=== PATIENT | male | born 1985 | race Caucasian/White ===

== ENCOUNTER 2017-07-14 00:02 | Inpatient (IN) | payer MEDICARE, MEDICAID ==
[2017-07-14] MEDS ORDERED: Piperacillin/Tazobactam 3.375 GM in Sodium Chloride 0.9% 100 ML IVPB SCH ×2 (02:00→08:00)
--- NOTE | 2017-07-14 06:34 | ULT ---
GALLBLADDER ULTRASOUND: CLINICAL HISTORY: Abdominal pain. Fever. FINDINGS: The liver is partially obscured by shadowing artifact, which limits assessment. The imaged portions demonstrate increased echogenicity, which may reflect fatty infiltration. There is distention of the gallbladder with evidence of cholelithiasis situated at the gallbladder neck. The common duct is di lated at 6 mm. No ascites is seen. Kumar sign is reported as negative by the developmental behavioral physician. IMPRESSION: 1. Cholelithiasis. 2. Mild biliary ductal dilatation is present. 3. Hepatic steatosis. 4. Limited evaluation due to decreased acoustic penetration of the abdomen. POS: [facility]
[2017-07-14] MEDS ORDERED: Ondansetron HCl/PF 4 MG/2 ML Vial IVP PRN ×3 (06:49→11:43)
[2017-07-14] MEDS ORDERED: Promethazine HCl 25 MG/ML VIAL IM PRN ×3 (06:49→11:43)
[2017-07-14] MEDS ORDERED: Bupivacaine 0.25% HCL 30 ML VIAL ONE (08:53)
[2017-07-14] MEDS ORDERED: Lidocaine 1% w/Epinephrine 1:200K 30 ML VIAL ONE (08:53)
[2017-07-14] MEDS ORDERED: Pantoprazole 40 MG VIAL IVP SCH (09:00)
[2017-07-14] MEDS ORDERED: Fentanyl 100 MCG/2 ML VIAL ONE ×2 (09:38→11:26)
--- NOTE | 2017-07-14 10:13 | HP ---
DATE OF ADMISSION: 07/14/2017 CHIEF COMPLAINT: Right upper quadrant pain. HISTORY OF PRESENT ILLNESS: This is a 32-year-old male, who presents with acute cholecystitis, pain in his right upper quadrant that is described as sharp, radiates to subscapular region. He has had s imilar symptoms after heavy meals in the past. The pain is now intractable, associated with nausea a nd vomiting. No change in bowels. See emergency department where ultrasound shows evidence of liana cystitis with gallstones, but he has a normal common bile duct. He has normal LFTs. PAST MEDICAL HISTORY: Hypertension and glaucoma. PAST SURGICAL HISTORY: He denies. MEDICATIONS: Medicines taken daily include Travatan, hydrochlorothiazide, lisinopril. ALLERGIES: SULFA. SOCIAL HISTORY: No smoking, alcohol, or other drugs. REVIEW OF SYSTEMS: Ten-system review of systems otherwise negative unless described above. PHYSICAL EXAMINATION: VITAL SIGNS: Blood pressure is 147/74, pulse 87, respirations 16. He is afebrile. HEENT: Sclerae are anicteric. Oropharynx clear. NECK: No lymphadenopathy. CHEST: Clear. HEART: Regular rate and rhythm. ABDOMEN: Soft, tender right lower quadrant, localized guarding, no rebound. No abdominal hernias. EXTREMITIES: No ischemia or edema to extremities. LABORATORY AND X-RAY FINDINGS: Ultrasound, gallstones. Liver function tests normal. ASSESSMENT: Acute cholecystitis. PLAN: Laparoscopic cholecystectomy. Risks, benefits, and alternatives discussed. He gave consent. We will do this today.
[2017-07-14] MEDS ORDERED: SUGAMMADEX SODIUM 500 MG/5 ML VIAL ONE (10:56)
[2017-07-14] MEDS ORDERED: Morphine Sulfate 2 MG/ML SYRINGE SLOW IVP PRN (11:31)
[2017-07-14] MEDS ORDERED: Meperidine HCl/PF 25 MG/ML VIAL SLOW IVP PRN (11:31)
[2017-07-14] MEDS ORDERED: Promethazine HCl 25 MG/ML VIAL SLOW IVP PRN (11:31)
[2017-07-14] MEDS ORDERED: HYDROmorphone 2 MG/ML VIAL SLOW IVP PRN (11:31)
[2017-07-14] MEDS ORDERED: HYDROcodone/Acetaminophen 10/325 mg Tablet PO PRN ×2 (11:43)
[2017-07-14] MEDS ORDERED: hydrALAZINE 20 MG/ML VIAL SLOW IVP PRN (11:43)
[2017-07-14] MEDS ORDERED: Mag-Al 1200 mg/1200 mg/30 ML UDCUP PO PRN (11:43)
[2017-07-14] MEDS ORDERED: Dextrose 5% in Water 1,000 ML IV PRN (11:43)
[2017-07-14] MEDS ORDERED: Calcium Carbonate 500 MG ChewTAB PO PRN (11:43)
[2017-07-14] MEDS ORDERED: Dextrose 50% Abboject 50 ML SYRINGE SLOW IVP PRN (11:43)
--- NOTE | 2017-07-14 12:04 | OP ---
DATE OF PROCEDURE: 07/14/2017 PREOPERATIVE DIAGNOSIS: Acute cholecystitis. POSTOPERATIVE DIAGNOSIS: Acute cholecystitis. PROCEDURE: Laparoscopic cholecystectomy. SURGEON: Dr. Dewey Oviedo ANESTHESIA: General. ESTIMATED BLOOD LOSS: None. COMPLICATIONS: None. SPECIMEN: Gallbladder. FINDINGS: Acute cholecystitis. PROCEDURE IN DETAIL: The patient was taken to the Operating Room and laid supine on the Operating Aniyah m table. After general anesthetic was obtained, the abdomen was prepped and draped in a sterile fashi on. A curved incision was made below the umbilicus. Cautery was used to dissect down to the umbilical fascia. Umbilical fascia was incised and held up using a Karolina. The abdominal cavity was entered us ing a Alicia clamp. Holding stitch of Vicryl was placed on each side of the fascia. Rueda trocar was placed. High-flow pneumoperitoneum was obtained. An upper midline 5-mm port and two right upper quadr ant 5-mm ports were placed under direct camera visualization. The gallbladder was retracted from the gallbladder fossa. The peritoneum of the gallbladder was opened anteriorly and posteriorly. The criti lilliana view triangle was seen showing only the cystic duct and cystic artery branching from medial to la teral. There were no other branching structures. Two clips were placed proximally on the cystic duct and one laterally. It was cut using laparoscopic scissors. The cystic artery was taken in the same wa y. Electrocautery was then used to dissect the gallbladder out of the gallbladder fossa. The gallblad cathleen was placed in an Endo catch bag and brought out through the Rueda. There was no bleeding or bile in the liver bed. The cystic duct stump and cystic artery stump were intact without evidence of extr avasation or bleeding. All port sites were infiltrated using local anesthesia. All ports were removed under camera visualization. Pneumoperitoneum was let down. The Vicryl was used to close the fascial defect below the umbilicus. All incisions were irrigated and closed using 4-0 Monocryl and DermaBond. The patient was en route to Recovery in stable condition. All instrument counts, needle counts and l ap counts were correct.
[2017-07-14 12:33] VITALS: TEMP 97.7
[2017-07-14 13:20] VITALS: BP 106/64
[2017-07-14] MEDS ORDERED: Ondansetron HCl/PF 4 MG/2 ML Vial ONE (14:28)
[2017-07-14] MEDS ORDERED: PHENYLEPHRINE-NS 100 MCG/ML 10 ML SYRINGE ONE (14:28)
[2017-07-14] MEDS ORDERED: Glycopyrrolate 0.2 MG/ML 5 ML SYRINGE ONE (14:28)
[2017-07-14] MEDS ORDERED: Ketorolac Tromethamine 30 MG/ML VIAL ONE (14:28)
[2017-07-14] MEDS ORDERED: Lidocaine 1% PF 5 ML VIAL ONE (14:28)
[2017-07-14] MEDS ORDERED: PROPOFOL 200 MG/20 ML VIAL ONE (14:28)
[2017-07-14] MEDS ORDERED: Dexamethasone 20 MG/5 ML VIAL ONE (14:28)
[2017-07-14] MEDS ORDERED: Famotidine 20 MG TAB PO SCH (21:00)
[2017-07-14] MEDS ORDERED: Famotidine/PF 20 mg/2ml Vial SLOW IVP SCH (21:00)
--- NOTE | 2017-07-16 15:01 | DIS ---
DATE OF ADMISSION: 07/14/2017 DATE OF DISCHARGE: 07/14/2017 ADMISSION DIAGNOSIS: Acute cholecystitis. DISCHARGE DIAGNOSIS: Acute cholecystitis. PROCEDURES: Laparoscopic cholecystectomy by Dr. Oviedo without complication. CONDITION AT DISCHARGE: Improved. STAFF: Dr. Dewey Oviedo. HOSPITAL COURSE: Postoperatively, patient did well, he was discharged home on Stewart and Zofran and f ollow up with me in the office in 2 weeks.
== END 2017-07-14 19:45 | disposition home or self-care (01) | DRG 419 ==
LOC: ERS 00:02 → SURG A 01:27
PROVIDERS: ADMIT Surgery; ATTEND Surgery
PROC: 0FT44ZZ Resection of Gallbladder, Percutaneous Endoscopic Approach (ICD-10-PCS; principal; 2017-07-14)
DX: K80.00 Calculus of gallbladder with acute cholecystitis without obstruction (principal); H40.9 Unspecified glaucoma; I10 Essential (primary) hypertension; Z88.2 Allergy status to sulfonamides; Z79.899 Other long term (current) drug therapy
CPT/HCPCS: 36415; 76705; 83605; 88304; 96361; 96374; 99406; J1100; J1885; J2001; J2270; J2405; J2543; J2704; J3010; J7050; S0020

== ENCOUNTER 2020-03-18 06:47 | Inpatient (IN) | payer MEDICARE, OTHER ==
[2020-03-18 08:58] LABS: CKMB 1.5 ng/mL (0-6.6)
[2020-03-18] MEDS ORDERED: Dexamethasone 10 MG/ML VIAL SLOW IVP SCH (09:00)
[2020-03-18] MEDS ORDERED: Aspirin 325 MG TAB PO SCH (09:00)
[2020-03-18] MEDS ORDERED: Ondansetron ODT 4 MG TAB PO PRN (09:49)
[2020-03-18] MEDS ORDERED: Ondansetron PF 4 MG/2 ML Vial IVP PRN (09:49)
[2020-03-18] MEDS ORDERED: Sodium Chloride 0.9% 1,000 ML IV SCH (10:00)
[2020-03-18 10:14] VITALS: BMI 41.8
--- NOTE | 2020-03-18 10:21 | PDOC.HHP ---
Hospitalist HPI - History of Present Illness Worsening dyspnea History of Present Illness: This is a 35-year-old male patient with a history of glaucoma, hypertension who was transferred from [place] on account of Covid pneumonia with hypoxia. Oxygen was as low as 56% upon arrival. He simply started about a week ago when he was noted to have progressive shortness of breath and fevers. CTA ruled out pulmonary embolism. Covid was positive. He was noted on Lovenox elevated D-dimer. Also received Zithromax and Rocephin. On arrival BP was 134/76, pulse 92, temperature 98.9, saturation 89 on about 4 L. His labs from earlier today showed a hemoglobin of 14.8, WBC of 12.7 and platelet 238. Also had mild hyponatremia of 129, troponin at 0.083, C-reactive protein 24.1 D-dimer was elevated at 0.52. His chest x-ray was concerning for worsening diffuse interstitial and parenchymal airspace opacities bilaterally and CT scan with angiography showed groundglass opacities without pulmonary embolism. He has ongoing shortness of breath but no chest pain. He is feeling significantly better on high flow nasal cannula. He denies any wheezing, cough, abdominal pain, dysuria or frequency. Hospitalist ROS - Review of Systems Constitutional: denies: fever, chills, sweats Respiratory: reports: shortness of breath, SOB with excertion Cardiovascular: denies: chest pain, palpitations, orthopnea Gastrointestinal: denies: nausea, vomiting, abdominal pain Genitourinary: denies: dysuria, frequency, hematuria - Medication Medications: Active Medications Generic Name Dose Route Start Last Admin Trade Name Freq PRN Reason Stop Dose Admin Sodium Chloride 1,000 mls @ 70 mls/hr 03/18/20 10:00 03/18/20 09:55 Normal Saline 0.9% IV 03/18/20 19:00 Not Given .[id number] LANDY Ondansetron 4 mg every 4 as needed Losartan 50 mg daily HCTZ 12.5 mg daily Meloxicam 15 mg daily Naltrexone 50 mg nightly. Travoprost 1 drop EEA IHS. Acetaminophen 650 p.o. every 4 as needed Bupropion 150 mg p.o. every morning Allergies: Sulfa antibiotics. Hospitalist History - Past Medical History Cardiac: reports: HTN - Past Surgical History Other Surgical History: No past surgical history. - Social History Tobacco Type: snuff Alcohol: reports: None Living Situation: With Family - Exam General Appearance: awake alert General - other findings: Morbidly obese. Eye: PERRL, anicteric sclera ENT: normocephalic atraumatic, no oropharyngeal lesions Heart: RRR, no murmur, normal peripheral pulses Respiratory - other findings: Bilateral coarse breath sounds. Extremities: no cyanosis, no clubbing, no edema Neurological: cranial nerve grossly intact, no weakness Psychiatric: A&O x 3 Hospitalist Results - Labs Result Diagrams: 03/19/20 04:51 03/20/20 04:29 Lab results: CK-MB (CK-2) 1.5 ng/mL (0-6.6) 03/18/20 07:51 Troponin I 0.086 ng/mL (< 0.028) H 03/18/20 07:51 Hospitalist H&P A/P - Plan Plan: 35-year-old male patient transferred from [place] on account of worsening bilateral Covid pneumonia Subjective started about 10 days ago. Covid pneumonia Received Lovenox and dexamethasone in ED. We will continue steroid treatment Continue anticoagulation given increased D-dimer May be out of remdesivir and antibiotic. We will consult ID Hypertension Restart antihypertensives once verified. Morbid obesity Long-term treatment on outpatient basis VT prophylaxislobular CODE STATUS full code Disposition pending improvement
[2020-03-18] MEDS ORDERED: Enoxaparin Sodium 40 MG/0.4 ML SYRINGE SC SCH ×2 (10:45→11:00)
[2020-03-18 11:35] LABS: Troponin I 0.042 ng/mL (< 0.028)
[2020-03-18 14:29] LABS: Troponin I 0.031 ng/mL (< 0.028)
--- NOTE | 2020-03-18 17:41 | CON ---
DATE OF CONSULTATION: 03/18/2020 REASON FOR CONSULTATION: Severe COVID pneumonia. HISTORY OF PRESENT ILLNESS: A 35-year-old, history of hypertension and glaucoma, who lives in [place] with family members. He has some learning disability and does not work and became ill on Friday, about 10 days ago and then was tested positive for COVID about a week ago, and due to progression of illness with worsening hypoxemia, he was admitted. No headaches. No visual symptoms. No sore throat, odynophagia, or dysphagia. He did have some sore throat at the beginning, but that disappeared. No anosmia. Still with quite severe dyspnea, and he has no abdominal pain or diarrhea. Voiding without difficulty. No joint symptoms or skin disorder. No neurological symptoms. MEDICAL HISTORY: Learning disability, glaucoma, hypertension, prior cholecystectomy. SOCIAL HISTORY: Lives with family in [place]. Uses chewing tobacco. Does not drink or use other types of drugs. ALLERGIES: SULFA DRUGS WITH SKIN RASH. MEDICATIONS: At the moment, he is receiving; 1. Decadron. 2. Enoxaparin b.i.d. 3. Ondansetron. PHYSICAL EXAMINATION: VITAL SIGNS: T-max 99.1, BP 130/60, heart rate 84, respiratory rate 24. O2 saturation started at 98, it is down to 91, now with 50 high-flow O2 supplementation. SKIN: Normal. Peripheral IV access. No Garay catheter. No lymphadenopathy. HEENT: Ocular movements conjugate. Oral cavity normal. NECK: Supple. LUNGS: With a few scattered inspiratory crackles at the bases. CARDIAC: S1 and S2, regular rate. No S3 or S4. ABDOMEN: Soft. Not distended or tender. No ascites. No bladder distention. EXTREMITIES: No joint inflammatory activity. No edema. Pulses 1+ in dorsalis pedis. Moves all extremities equally. NEUROLOGIC: Cognitive function appears to be intact. LABORATORY DATA: White cell count 12.7, hemoglobin 14.8, platelets 238, 90% neutrophils. Total lymphocyte count is 0.6. D-dimer 0.52. Sodium 129, lactic acid 1.3, AST 47, ALT 55. CK 303. CRP 24. Albumin 3.7. Urinalysis with 0 to 3 wbc's. SARS-CoV PCR positive. Hepatitis serology negative. The CT chest showed quite pronounced bilateral diffuse infiltrates and ground-glass opacities consistent with severe COVID infection. He had a CT abdomen and pelvis done on March 11 and it showed numerous pulmonary nodules, and the CT from March 11 of chest with nodular opacities, ground-glass opacities. ASSESSMENT: Hypertension, learning disability, severe COVID pneumonia requiring high-flow O2 supplementation. He is going to the middle of the second week. He is not eligible for remdesivir in view of duration and the need for high-flow oxygen supplementation. Convalescent plasma is not effective, and the only recourse we have is slowing down the inflammatory process with Decadron and provide Lovenox for thromboembolism prophylaxis as well as oxygen supplementation. He is at high risk for further deterioration, needing higher levels of support including requirement for mechanical ventilation. Hopefully, he will turn around with corticosteroids. Job ID: [id number] JASWINDER
[2020-03-18] MEDS: Enoxaparin Sodium 40 MG/0.4 ML SYRINGE SC SCH (20:41)
[2020-03-18] MEDS: Latanoprost 0.005% Ophth Soln 2.5 ml Bottle EA EYE SCH (20:42)
[2020-03-19 05:23] LABS: #Lymphocytes 0.7 thou/uL (1.20-3.40); #Neutrophils 8.9 thou/uL (1.40-6.50); %Basophils 0.2 % (0.0-1.0); %Eosinophils 0.1 % (0.0-10.0); %Lymphocytes 6.5 % (21.0-51.0); %Monocytes 9.4 % (0.0-10.0); %Neutrophils 83.8 % (42.0-75.0); Mean Corpuscular HGB CONC 34.1 g/dL (32.0-36.0); Mean Corpuscular Hemoglobin 28.8 pg (27.0-31.0); Mean Corpuscular Volume 84.5 fL (78.0-98.0); Mean Platelet Volume 7.6 fL (7.4-10.4); Platelet Count 271 thou/uL (130-400); Red Blood Cell (RBC) Count 4.51 mill/uL (4.70-6.10); White Blood Cell (WBC) Count 10.6 thou/uL (4.8-10.8)
[2020-03-19 05:47] LABS: Anion Gap 13 mmol/L (10-20); BUN (Urea Nitrogen) 19 mg/dL (8.9-20.6); Calc. Creatinine Clearance 223 mL/min (70-130); Calcium 8.8 mg/dL (7.8-10.44); Carbon Dioxide 31 mmol/L (22-29); Chloride 93 mmol/L (98-107); Estimated GFR-MDRD Greater than 90; Glucose 149 mg/dL (70-105); Potassium 3.4 mmol/L (3.5-5.1); Sodium 134 mmol/L (136-145)
[2020-03-19] MEDS ORDERED: Electrolyte Replacement Protoc 1 EACH EACH FS SCH (08:30)
[2020-03-19] MEDS ORDERED: Potassium Chloride 20 MEQ TAB PO SCH (08:30)
[2020-03-19] MEDS ORDERED: [Naltrexone Hcl] 50 MG Tablet PO SCH (09:00)
[2020-03-19] MEDS: Bupropion 150 MG XL TAB PO SCH (09:50)
[2020-03-19] MEDS: Losartan 25 MG TAB PO SCH (09:50)
[2020-03-19] MEDS: Dexamethasone 10 MG in Sodium Chloride 0.9% 50 ML IVPB SCH (09:51)
[2020-03-19] MEDS: Enoxaparin Sodium 40 MG/0.4 ML SYRINGE SC SCH ×2 (09:51→20:45)
--- NOTE | 2020-03-19 14:33 | PRG ---
DATE OF SERVICE: 03/19/2020 SUBJECTIVE: Feeling about the same. He actually looks comfortable at rest. Not much coughing right now. No chest pain or abdominal pain. No diarrhea. Voiding without problems. OBJECTIVE: VITAL SIGNS: Saturating 96% with high flow 50l per minute, temperature is normal and has been normal. LUNGS: Symmetric clear breath sounds. HEART: S1 and S2, regular rate. ABDOMEN: Soft. [id number] distended. EXTREMITIES: No edema. LABORATORY DATA: Sodium 134, creatinine 0.81. We have one ferritin and one CRP, ferritin 668 and CRP is 1216. D-dimer 0.47. ASSESSMENT AND DISCUSSION: Hypertension, learning disability, severe COVID pneumonia with high-flow O2 supplementation requirement, middle of the second week, not eligible for remdesivir, and continue on high-flow supplementation and Decadron as well as Lovenox. Job ID: [id number] [facility]
[2020-03-19] MEDS: Latanoprost 0.005% Ophth Soln 2.5 ml Bottle EA EYE SCH (20:45)
--- NOTE | 2020-03-19 23:49 | PDOC.HOSPP ---
- Subjective Encounter Date: 03/19/20 Subjective: Patients chart was review but not examined today - Objective Vital Signs & Weight: Vital Signs (12 hours) Temp Pulse Resp BP Pulse Ox 03/19/20 20:49 98.0 F 71 29 H 119/55 L 96 03/19/20 16:20 98.0 F 77 20 107/56 L 96 Weight Weight 275 lb 4.8 oz I&O: 03/18/20 03/19/20 03/20/20 06:59 06:59 06:59 Intake Total 300 810 Output Total 1900 1100 Balance -1600 -290 Result Diagrams: 03/19/20 04:51 03/19/20 04:51 Hospitalist ROS - Medication Medications: Active Medications Generic Name Dose Route Start Last Admin Trade Name Chantell PRN Reason Stop Dose Admin Bupropion HCl 150 mg 03/19/20 09:00 03/19/20 09:50 Bupropion 150 Mg Xl Tab PO 150 mg QAM LANDY Administration Enoxaparin Sodium 40 mg 03/18/20 21:00 03/19/20 20:45 Enoxaparin Sodium 40 Mg/0.4 Ml Syringe SC 40 mg 0900,2100 LANDY Administration Dexamethasone 10 mg/ Sodium 51 mls @ 100 mls/hr 03/19/20 09:00 03/19/20 09:51 Chloride IVPB 51 mls DAILY LANDY Administration Latanoprost 1 drop 03/18/20 21:00 03/19/20 20:45 Latanoprost 0.005% Ophth Soln 2.5 Ml Bottle EA EYE 1 drop HS LANDY Administration Losartan Potassium 50 mg 03/19/20 09:00 03/19/20 09:50 Losartan 25 Mg Tab PO 50 mg DAILY LANDY Administration Sodium Chloride 10 ml 03/18/20 21:00 03/19/20 20:45 Flush - Normal Saline 10 Ml Syringe IVF 10 ml Q12HR LANDY Administration Hosp A/P - Plan 35-year-old male patient transferred from [place] on account of worsening bilateral Covid pneumonia Subjective started about 11 days ago. Covid pneumonia Continue Lovenox and dexamethasone ID saw today Hypertension Restart antihypertensives once verified. Morbid obesity Long-term treatment on outpatient basis VT prophylaxislobular CODE STATUS full code Disposition pending [facility]
[2020-03-20 05:22] LABS: ALT (SGPT) 64 U/L (8-55); AST (SGOT) 32 U/L (5-34); Albumin 3.4 g/dL (3.5-5.0); Alkaline Phosphatase 71 U/L (40-110); Anion Gap 14 mmol/L (10-20); BUN (Urea Nitrogen) 22 mg/dL (8.9-20.6); Bilirubin, Total 0.4 mg/dL (0.2-1.2); Calc. Creatinine Clearance 196 mL/min (70-130); Calcium 8.7 mg/dL (7.8-10.44); Carbon Dioxide 30 mmol/L (22-29); Chloride 96 mmol/L (98-107); Estimated GFR-MDRD Greater than 90; Globulin 3.1 g/dL (2.4-3.5); Glucose 136 mg/dL (70-105); Protein, Total 6.5 g/dL (6.0-8.3); Sodium 136 mmol/L (136-145)
[2020-03-20] MEDS: Dexamethasone 10 MG in Sodium Chloride 0.9% 50 ML IVPB SCH (08:18)
[2020-03-20] MEDS: Bupropion 150 MG XL TAB PO SCH (08:18)
[2020-03-20] MEDS: Enoxaparin Sodium 40 MG/0.4 ML SYRINGE SC SCH ×2 (08:18→22:37)
[2020-03-20] MEDS: Losartan 25 MG TAB PO SCH (08:18)
--- NOTE | 2020-03-20 18:14 | PDOC.HOSPP ---
- Subjective Encounter Date: 03/20/20 Subjective: Breathing well. Modest cough. Somewhat productive. Otherwise feels well. - Objective Vital Signs & Weight: Vital Signs (12 hours) Temp Pulse Resp BP Pulse Ox 03/20/20 12:05 98.2 F 74 26 H 115/57 L 96 03/20/20 08:20 97.9 F 68 18 116/61 95 03/20/20 07:17 95 Weight Weight 275 lb 4.8 oz I&O: 03/19/20 03/20/20 03/21/20 06:59 06:59 06:59 Intake Total 300 1820 Output Total 1900 2060 Balance -1600 -240 Result Diagrams: 03/19/20 04:51 03/20/20 04:29 Hospitalist ROS - Medication Medications: Active Medications Generic Name Dose Route Start Last Admin Trade Name Freq PRN Reason Stop Dose Admin Bupropion HCl 150 mg 03/19/20 09:00 03/20/20 08:18 Bupropion 150 Mg Xl Tab PO 150 mg QAM LANDY Administration Enoxaparin Sodium 40 mg 03/18/20 21:00 03/20/20 08:18 Enoxaparin Sodium 40 Mg/0.4 Ml Syringe SC 40 mg 0900,2100 LANDY Administration Dexamethasone 10 mg/ Sodium 51 mls @ 100 mls/hr 03/19/20 09:00 03/20/20 08:18 Chloride IVPB 51 mls DAILY LANDY Administration Latanoprost 1 drop 03/18/20 21:00 03/19/20 20:45 Latanoprost 0.005% Ophth Soln 2.5 Ml Bottle EA EYE 1 drop HS LANDY Administration Losartan Potassium 50 mg 03/19/20 09:00 03/20/20 08:18 Losartan 25 Mg Tab PO 50 mg DAILY LANDY Administration Sodium Chloride 10 ml 03/18/20 21:00 03/20/20 08:19 Flush - Normal Saline 10 Ml Syringe IVF 10 ml Q12HR LANDY Administration - Exam General Appearance: NAD, awake alert General - other findings: Morbidly obese Heart: RRR, no murmur, no gallops, no rubs, normal peripheral pulses Respiratory: no wheezes, no ronchi Respiratory - other findings: Scattered bilateral minimal rales. Gastrointestinal: soft, non-tender, non-distended, normal bowel sounds, no palpable masses, no hepatomegaly, no splenomegaly, no bruit Extremities: no cyanosis, no clubbing, no edema Skin: normal turgor Neurological: no new deficit Musculoskeletal: normal tone, normal strength, no muscle wasting Psychiatric: normal affect, normal behavior, A&O x 3 Hosp A/P (1) Acute respiratory failure with hypoxia Code(s): J96.01 - ACUTE RESPIRATORY FAILURE WITH HYPOXIA Status: Acute (2) Pneumonia due to COVID-19 virus Code(s): U07.1 - COVID-19; J12.89 - OTHER VIRAL PNEUMONIA Status: Acute (3) Morbid obesity Code(s): E66.01 - MORBID (SEVERE) OBESITY DUE TO EXCESS CALORIES Status: Chronic (4) Hypertension Code(s): I10 - ESSENTIAL (PRIMARY) HYPERTENSION Status: Chronic - Plan Acute hypoxic respiratory failure: Continue supplemental oxygen as needed. Showing signs of subtle improvement. Feels very comfortable on the supplemental oxygen. COVID-19 pneumonia: Continue with steroids and anticoagulation. Does not really meet criteria for other interventions. Appreciate ID input. Morbid obesity: Stable. Hypertension: Very stable on his home medication regimen.
[2020-03-20] MEDS: Latanoprost 0.005% Ophth Soln 2.5 ml Bottle EA EYE SCH (22:37)
[2020-03-21] MEDS: Losartan 25 MG TAB PO SCH (09:03)
[2020-03-21] MEDS: Bupropion 150 MG XL TAB PO SCH (09:03)
[2020-03-21] MEDS: Enoxaparin Sodium 40 MG/0.4 ML SYRINGE SC SCH ×2 (09:03→20:59)
[2020-03-21] MEDS: Dexamethasone 10 MG/ML VIAL SLOW IVP SCH (09:04)
[2020-03-21] MEDS: Dexamethasone 10 MG in Sodium Chloride 0.9% 50 ML IVPB SCH (09:28)
--- NOTE | 2020-03-21 18:32 | PDOC.HOSPP ---
- Subjective Encounter Date: 03/21/20 Subjective: Doing well overall. He is breathing relatively comfortably today. Says he cannot wait for the day that he is told he needs to go home. - Objective Vital Signs & Weight: Vital Signs (12 hours) Temp Pulse Resp BP Pulse Ox 03/21/20 15:27 97.2 F L 68 32 H 151/74 H 96 03/21/20 11:35 96.9 F L 60 36 H 138/68 98 03/21/20 09:20 98.8 F 75 32 H 132/64 98 Weight Weight 275 lb 4.8 oz I&O: 03/20/20 03/21/20 03/22/20 06:59 06:59 06:59 Intake Total 1820 2865 1000 Output Total 2060 2435 900 Balance -240 430 100 Result Diagrams: 03/19/20 04:51 03/20/20 04:29 Hospitalist ROS - Medication Medications: Active Medications Generic Name Dose Route Start Last Admin Trade Name Freq PRN Reason Stop Dose Admin Bupropion HCl 150 mg 03/19/20 09:00 03/21/20 09:03 Bupropion 150 Mg Xl Tab PO 150 mg QAM LANDY Administration Dexamethasone 10 mg 03/21/20 09:00 03/21/20 09:04 Dexamethasone 10 Mg/Ml Vial SLOW IVP 10 mg DAILY LANDY Administration Enoxaparin Sodium 40 mg 03/18/20 21:00 03/21/20 09:03 Enoxaparin Sodium 40 Mg/0.4 Ml Syringe SC 40 mg 0900,2100 LANDY Administration Latanoprost 1 drop 03/18/20 21:00 03/20/20 22:37 Latanoprost 0.005% Ophth Soln 2.5 Ml Bottle EA EYE 1 drop HS LANDY Administration Losartan Potassium 50 mg 03/19/20 09:00 03/21/20 09:03 Losartan 25 Mg Tab PO 50 mg DAILY LANDY Administration Sodium Chloride 10 ml 03/18/20 21:00 03/21/20 09:04 Flush - Normal Saline 10 Ml Syringe IVF 10 ml Q12HR LANDY Administration - Exam General Appearance: NAD, awake alert Heart: RRR, no murmur, no gallops, no rubs, normal peripheral pulses Respiratory: rales (Fine scattered rales. Fairly good air exchange.) Gastrointestinal: soft, non-tender, non-distended, normal bowel sounds, no palpable masses, no hepatomegaly, no splenomegaly, no bruit Extremities: no cyanosis, no clubbing, no edema Skin: normal turgor Neurological: no focal deficits, no new deficit Musculoskeletal: normal tone, normal strength, no muscle wasting Psychiatric: normal affect, normal behavior Hosp A/P (1) Acute respiratory failure with hypoxia Code(s): J96.01 - ACUTE RESPIRATORY FAILURE WITH HYPOXIA Status: Acute (2) Pneumonia due to COVID-19 virus Code(s): U07.1 - COVID-19; J12.89 - OTHER VIRAL PNEUMONIA Status: Acute (3) Morbid obesity Code(s): E66.01 - MORBID (SEVERE) OBESITY DUE TO EXCESS CALORIES Status: Chronic (4) Hypertension Code(s): I10 - ESSENTIAL (PRIMARY) HYPERTENSION Status: Chronic - Plan Acute hypoxic respiratory failure: Continue supplemental oxygen as needed. Showing signs of subtle improvement. Feels very comfortable on the supplemental oxygen. Been able to wean down on his FiO2 a bit but still on 50 L of high flow nasal cannula. Reviewing his vitals looks like he may have a little more tachypnea this afternoon. COVID-19 pneumonia: Continue with steroids and anticoagulation. Does not really meet criteria for other interventions. Appreciate ID input. Appears that he is around at least day 10 of his infection. Morbid obesity: Stable. Hypertension: Very stable on his home medication regimen. Disposition: Discussed with the patient's mother via telephone. She is also his power of patent attorney as it appears he has some learning disability. Her also has it but he is at home.
[2020-03-21] MEDS: Latanoprost 0.005% Ophth Soln 2.5 ml Bottle EA EYE SCH (20:59)
[2020-03-22] MEDS: Enoxaparin Sodium 40 MG/0.4 ML SYRINGE SC SCH ×2 (08:52→19:30)
[2020-03-22] MEDS: Losartan 25 MG TAB PO SCH (08:53)
[2020-03-22] MEDS: Bupropion 150 MG XL TAB PO SCH (08:53)
[2020-03-22] MEDS: Dexamethasone 10 MG/ML VIAL SLOW IVP SCH (08:53)
--- NOTE | 2020-03-22 12:46 | PDOC.HOSPP ---
- Subjective Encounter Date: 03/22/20 Encounter Time: 12:44 Subjective: Patient seen for follow-up for COVID-19 pneumonia. Reports feeling better. - Objective Vital Signs & Weight: Vital Signs (12 hours) Temp Pulse Resp BP BP Pulse Ox 03/22/20 10:39 96 03/22/20 08:45 98.6 F 72 32 H 137/56 L 96 03/22/20 05:13 98.0 F 74 23 H 125/61 96 03/22/20 01:02 98.2 F 68 23 H 148/68 H 99 Weight Weight 275 lb 4.8 oz I&O: 03/21/20 03/22/20 03/23/20 06:59 06:59 06:59 Intake Total 2865 1670 Output Total 2435 2610 Balance 430 -940 Result Diagrams: 03/19/20 04:51 03/20/20 04:29 Additional Labs: Labs and MAR reviewed by me EKG Reviewed by me: Yes (Telemetry: NSR) Hospitalist ROS - Review of Systems Respiratory: reports: cough, dry, SOB with excertion. denies: shortness of breath, hemoptysis, pleuritic pain, sputum, wheezing Cardiovascular: denies: chest pain, palpitations, orthopnea, paroxysmal noc. dyspnea, edema, light headedness - Medication Medications: Active Medications Generic Name Dose Route Start Last Admin Trade Name Freq PRN Reason Stop Dose Admin Bupropion HCl 150 mg 03/19/20 09:00 03/22/20 08:53 Bupropion 150 Mg Xl Tab PO 150 mg QAM LANDY Administration Dexamethasone 10 mg 03/21/20 09:00 03/22/20 08:53 Dexamethasone 10 Mg/Ml Vial SLOW IVP 10 mg DAILY LANDY Administration Enoxaparin Sodium 40 mg 03/18/20 21:00 03/22/20 08:52 Enoxaparin Sodium 40 Mg/0.4 Ml Syringe SC 40 mg 0900,2100 LANDY Administration Latanoprost 1 drop 03/18/20 21:00 03/21/20 20:59 Latanoprost 0.005% Ophth Soln 2.5 Ml Bottle EA EYE 1 drop HS LANDY Administration Losartan Potassium 50 mg 03/19/20 09:00 03/22/20 08:53 Losartan 25 Mg Tab PO 50 mg DAILY LANDY Administration Sodium Chloride 10 ml 03/18/20 21:00 03/22/20 08:53 Flush - Normal Saline 10 Ml Syringe IVF 10 ml Q12HR LANDY Administration - Exam General - other findings: Morbid obesity Eye: anicteric sclera ENT: moist mucosa Neck: supple Heart: RRR Respiratory: CTAB Gastrointestinal: soft, non-tender Extremities: no cyanosis Skin: no rashes Psychiatric: normal affect, normal behavior Hosp A/P (1) Acute respiratory failure with hypoxia Code(s): J96.01 - ACUTE RESPIRATORY FAILURE WITH HYPOXIA Status: Acute (2) Pneumonia due to COVID-19 virus Code(s): U07.1 - COVID-19; J12.89 - OTHER VIRAL PNEUMONIA Status: Acute (3) Hypertension Code(s): I10 - ESSENTIAL (PRIMARY) HYPERTENSION Status: Chronic (4) Morbid obesity Code(s): E66.01 - MORBID (SEVERE) OBESITY DUE TO EXCESS CALORIES Status: Chronic - Plan Acute hypoxic respiratory failure: Patient's oxygen has been changed to oxygen by nasal cannula on March 22, 2020 after downgrading from high flow oxygen. Continue to monitor oxygen saturation. COVID-19 pneumonia: Continue dexamethasone, continue Lovenox. Start vitamin C and zinc. Hypertension: Stable and controlled. Morbid obesity: Stable.
[2020-03-22] MEDS ORDERED: Zinc Sulfate 220 MG CAP PO SCH (13:00)
[2020-03-22] MEDS ORDERED: Ascorbic Acid 500 mg Chewable Tablet PO SCH (13:00)
[2020-03-22] MEDS: Latanoprost 0.005% Ophth Soln 2.5 ml Bottle EA EYE SCH (19:30)
[2020-03-23] MEDS: Ascorbic Acid 500 mg Chewable Tablet PO SCH (07:57)
[2020-03-23] MEDS: Bupropion 150 MG XL TAB PO SCH (07:58)
[2020-03-23] MEDS: Enoxaparin Sodium 40 MG/0.4 ML SYRINGE SC SCH ×2 (07:58→19:24)
[2020-03-23] MEDS: Losartan 25 MG TAB PO SCH (07:59)
[2020-03-23] MEDS: Zinc Sulfate 220 MG CAP PO SCH (08:01)
[2020-03-23] MEDS: Dexamethasone 10 MG/ML VIAL SLOW IVP SCH (08:05)
--- NOTE | 2020-03-23 17:33 | PDOC.HOSPP ---
- Subjective Encounter Date: 03/23/20 Encounter Time: 09:00 Subjective: Patient seen for follow-up regarding respiratory failure. Feels better today, still on oxygen by nasal cannula. - Objective Vital Signs & Weight: Vital Signs (12 hours) Temp Pulse Resp BP BP Pulse Ox 03/23/20 16:00 96.2 F L 78 22 H 135/75 135/75 100 03/23/20 12:20 96.7 F L 81 20 151/70 H 98 03/23/20 07:53 92 L 03/23/20 07:51 98 03/23/20 07:50 98.1 F 74 32 H 154/78 H 88 L Weight Weight 275 lb 4.8 oz I&O: 03/22/20 03/23/20 03/24/20 06:59 06:59 06:59 Intake Total 1670 1480 540 Output Total 2610 2625 1600 [facility] -[phone] Result Diagrams: 03/19/20 04:51 03/20/20 04:29 Additional Labs: I reviewed patient's labs and MAR EKG Reviewed by me: Yes (Telemetry: NSR) Hospitalist ROS - Review of Systems Constitutional: denies: fever, chills, sweats, weakness Respiratory: denies: cough, dry, shortness of breath, hemoptysis, SOB with excertion, pleuritic pain, sputum, wheezing - Medication Medications: Active Medications Generic Name Dose Route Start Last Admin Trade Name Freq PRN Reason Stop Dose Admin Ascorbic Acid 1,000 mg 03/23/20 09:00 03/23/20 07:57 Ascorbic Acid 500 Mg Chewable Tablet PO 1,000 mg DAILY LANDY Administration Bupropion HCl 150 mg 03/19/20 09:00 03/23/20 07:58 Bupropion 150 Mg Xl Tab PO 150 mg QAM LANDY Administration Dexamethasone 10 mg 03/21/20 09:00 03/23/20 08:05 Dexamethasone 10 Mg/Ml Vial SLOW IVP 10 mg DAILY LANDY Administration Enoxaparin Sodium 40 mg 03/18/20 21:00 03/23/20 07:58 Enoxaparin Sodium 40 Mg/0.4 Ml Syringe SC 40 mg 0900,2100 LANDY Administration Latanoprost 1 drop 03/18/20 21:00 03/22/20 19:30 Latanoprost 0.005% Ophth Soln 2.5 Ml Bottle EA EYE 1 drop HS LANDY Administration Losartan Potassium 50 mg 03/19/20 09:00 03/23/20 07:59 Losartan 25 Mg Tab PO 50 mg DAILY LANDY Administration Sodium Chloride 10 ml 03/18/20 21:00 03/23/20 08:08 Flush - Normal Saline 10 Ml Syringe IVF 10 ml Q12HR LANDY Administration Zinc Sulfate 220 mg 03/23/20 09:00 03/23/20 08:01 Zinc Sulfate 220 Mg Cap PO 220 mg DAILY LANDY Administration - Exam General - other findings: Morbid obesity ENT: no oropharyngeal lesions, moist mucosa Neck: supple Heart: RRR Respiratory: CTAB Gastrointestinal: soft, non-tender Skin: no rashes Psychiatric: normal affect, normal behavior Hosp A/P (1) Acute respiratory failure with hypoxia Code(s): J96.01 - ACUTE RESPIRATORY FAILURE WITH HYPOXIA Status: Acute (2) Pneumonia due to COVID-19 virus Code(s): U07.1 - COVID-19; J12.89 - OTHER VIRAL PNEUMONIA Status: Acute (3) Hypertension Code(s): I10 - ESSENTIAL (PRIMARY) HYPERTENSION Status: Chronic (4) Morbid obesity Code(s): E66.01 - MORBID (SEVERE) OBESITY DUE TO EXCESS CALORIES Status: Chronic - Plan Acute hypoxic respiratory failure: Patient continues to be on oxygen by nasal cannula, clinically improving. COVID-19 pneumonia: Continue dexamethasone, Lovenox, vitamin C and zinc. Hypertension: Stable and controlled. Morbid obesity: Stable.
[2020-03-23] MEDS: Latanoprost 0.005% Ophth Soln 2.5 ml Bottle EA EYE SCH (19:24)
[2020-03-24] MEDS: Ascorbic Acid 500 mg Chewable Tablet PO SCH (09:00)
[2020-03-24] MEDS: Bupropion 150 MG XL TAB PO SCH (09:00)
[2020-03-24] MEDS: Enoxaparin Sodium 40 MG/0.4 ML SYRINGE SC SCH (09:01)
[2020-03-24] MEDS: Dexamethasone 10 MG/ML VIAL SLOW IVP SCH (09:01)
[2020-03-24] MEDS: Losartan 25 MG TAB PO SCH (09:02)
[2020-03-24] MEDS: Zinc Sulfate 220 MG CAP PO SCH (09:02)
[2020-03-24 09:42] VITALS: TEMP 97.6
--- NOTE | 2020-03-24 13:31 | PDOC.DS.DS ---
Provider - Provider Date of Admission: 03/18/20 08:07 Date of Discharge: 03/24/20 Admitting Provider: Kirk Tierney MD Consultations: Infectious Disease Primary Care Physician: Chance Osorio MD Course - Hospital Course Hospital Course: Discharge diagnosis: 1. Acute hypoxic respiratory failure 2. COVID-19 pneumonia 3. Morbid obesity Hospital course: Patient is a pleasant 35-year-old gentleman who was admitted to the hospital on March 18, 2020 for acute hypoxic respiratory failure secondary to COVID-19 pneumonia. He was seen by infectious disease service. He was treated with dexamethasone, vitamin C and zinc. His clinical status initially worsened and he required high flow oxygen. However, he improved after that and was initially titrated down to oxygen by nasal cannula, subsequently he was oxygenating well on room air even with ambulation. He is being discharged home in a stable condition. Total amount of time spent coordinating this discharge: 32 minutes. Resuscitation Status: 03/18/20 11:20 Resuscitation Status Routine Resuscitation Status: FULL: Full Resuscitation - Labs Lab Results: 03/19/20 04:51 03/20/20 04:29 Abnormal Lab Results - Last 48 hrs 03/23/20 04:31: C-Reactive Protein 1.46 H 03/23/20 04:31: D-Dimer 0.85 H 03/23/20 04:31: Ferritin 393.88 H 03/24/20 04:45: C-Reactive Protein 0.91 H 03/24/20 04:45: D-Dimer 0.63 H 03/24/20 04:45: Ferritin 445.43 H - Physical Exam Vitals: Vital Signs (12 hours) Temp Pulse Resp BP BP Pulse Ox 03/24/20 09:15 97.6 F 86 16 128/65 99 03/24/20 03:40 98.1 F 65 24 H 122/60 97 03/24/20 01:52 100 Weight Weight 275 lb 4.8 oz Physical Exam: The patient was seen and examined on the day of discharge. He denies any chest pain or shortness of breath, fevers or chills. Vital signs are stable. S1 and S2 are heard, regular. Lungs are clear to auscultation bilaterally. Problem - Problem (1) Acute respiratory failure with hypoxia Code(s): J96.01 - ACUTE RESPIRATORY FAILURE WITH HYPOXIA Status: Acute (2) Pneumonia due to COVID-19 virus Code(s): U07.1 - COVID-19; J12.89 - OTHER VIRAL PNEUMONIA Status: Acute (3) Hypertension Code(s): I10 - ESSENTIAL (PRIMARY) HYPERTENSION Status: Chronic (4) Morbid obesity Code(s): E66.01 - MORBID (SEVERE) OBESITY DUE TO EXCESS CALORIES Status: Chronic - Time spent with Patient (mins): 31 Plan - Discharge Medications Prescriptions: Dexamethasone 6 mg PO DAILY #4 tablet Ascorbic Acid [Vitamin C] 1,000 mg PO DAILY #8 tab Zinc Sulfate 220 mg PO DAILY #4 cap Home Medications: Medication Instructions Recorded Confirmed Type Hydrochlorothiazide 12.5 mg PO DAILY 07/14/17 03/18/20 History Travoprost [Travatan Z] 1 drop EA EYE HS 07/14/17 03/18/20 History Acetaminophen [Tylenol] 650 mg PO Q4H PRN 03/18/20 03/18/20 History BuPROPion XL [Wellbutrin XL] 150 mg PO QAM 03/18/20 03/18/20 History Losartan [Cozaar] 50 mg PO DAILY 03/18/20 03/18/20 History Meloxicam 15 mg PO DAILY 03/18/20 03/18/20 History Naltrexone HCl 50 mg PO QAM 03/18/20 03/18/20 History Ondansetron HCl [Zofran] 4 mg PO Q4HR PRN 03/18/20 03/18/20 History Ascorbic Acid [Vitamin C] 1,000 mg PO DAILY #8 tab 03/24/20 Rx Dexamethasone 6 mg PO DAILY #4 tablet 03/24/20 Rx Zinc Sulfate 220 mg PO DAILY #4 cap 03/24/20 Rx Allergies: Sulfa (Sulfonamide Antibiotics) Allergy (Verified 03/18/20 10:11) per pt - Discharge Instructions Discharge Instructions:: CHECK YOUR OXYGEN SATURATIONS THREE TIMES A DAY WITH PULSE OXIMETER. SEEK MEDICAL ATTENTION FOR SATURATION LESS THAN 90%. Activity:: Activity as Tolerated Nourishment:: Heart Healthy Diet - Follow up Plan Referrals: Chance Osorio MD [Primary Care Provider] - 03/27/20 9:30 am (HOSPITAL F/U W/ DR. OSORIO ON 03/27 @ 9:30AM. JEN GONGORA) Disposition: HOME Quality - Care Measures CORE MEASURES:: N/A
[2020-03-24 14:52] VITALS: BP 150/82
== END 2020-03-24 15:22 | disposition home or self-care (01) | DRG 177 ==
LOC: ERS 06:47 → 2SW 08:07
PROVIDERS: ADMIT Student in an Organized Health Care Education/Training Program; ATTEND Internal Medicine
PROC: 8E0ZXY6 Isolation (ICD-10-PCS; principal; 2020-03-18)
DX: U07.1 COVID-19 (principal); J12.89 Other viral pneumonia; J96.01 Acute respiratory failure with hypoxia; Z68.41 Body mass index [BMI] 40.0-44.9, adult; H40.9 Unspecified glaucoma; E66.01 Morbid (severe) obesity due to excess calories; I10 Essential (primary) hypertension; Z88.2 Allergy status to sulfonamides
CPT/HCPCS: 36415; 80048; 80053; 82553; 82728; 85025; 85379; 86140; 93005; J1100; J1650